=== PATIENT | male | born 2000 | race Asian ===

== ENCOUNTER 2019-03-04 21:47 | Emergency (ER) | payer OTHER ==
[~2019-03-04] VITALS: Ht 172.7 cm; Wt 65.3 kg
[2019-03-04 22:33] VITALS: Ht 172.7 cm; Wt 65.3 kg
[2019-03-05 00:21] VITALS: BP 132/86
== END 2019-03-05 00:21 | disposition home or self-care (01) ==
LOC: ED 21:47
DX: B34.9 Viral infection, unspecified (principal); K12.0 Recurrent oral aphthae; R21 Rash and other nonspecific skin eruption; F17.210 Nicotine dependence, cigarettes, uncomplicated